=== PATIENT | female | born 1945 | race Caucasian/White ===

== ENCOUNTER 2024-02-25 13:05 | Observation (INO) | payer MEDICARE ==
[2024-02-25 15:20] LABS: BASO % 0.6 % (0-2.0); EOS % 3.8 % (0-4.5); HEMATOCRIT 27.7 % (32.4-45.2); LYMPH % 34.4 % (8-40); MCH 30.8 pg (25.7-33.7); MCHC 32.5 g/dl (32.0-36.0); MEAN CELL VOLUME 94.8 fl (80-96); MEAN PLT VOLUME 6.7 fl (7.5-11.1); MONO % 12.2 % (3.8-10.2); PLATELET COUNT 439 10^3/uL (134-434); RBC 2.92 M/mm3 (3.60-5.2); RDW 15.1 % (11.6-15.6); WHITE BLOOD COUNT 6.1 K/mm3 (4.0-10.0)
[2024-02-25 15:35] LABS: POTASSIUM 3.4 mmol/L (3.5-5.1)
[2024-02-25 15:38] LABS: ALBUMIN 3.2 g/dl (3.4-5.0); BLOOD UREA NITROGEN 14.7 mg/dL (7-18); CALCIUM 8.9 mg/dL (8.5-10.1)
[2024-02-25 15:41] LABS: CREATININE 0.8 mg/dL (0.55-1.3)
[2024-02-25 15:43] LABS: BILIRUBIN,TOTAL 0.6 mg/dL (0.2-1); TOT PROT 6.9 g/dl (6.4-8.2)
[2024-02-25 15:46] LABS: N-TERMINAL BNP 1026.2 pg/ml (5-450)
[2024-02-25 16:02] LABS: INR 1.05 (0.83-1.09); PROTHROMBIN TIME (PATIENT) 12.1 SEC (9.7-13.0)
[2024-02-25 16:05] LABS: ACTIVATED PTT 29.8 SECONDS (25.2-36.5)
[2024-02-25 16:09] LABS: EPI CELLS 5 /uL (0-25.1); HYALINE CASTS 0 /uL (0-3.1); PH,URINE 6.5 (5.0-8.0); URINE APPEARANCE CLEAR; URINE BACTERIA >9,000 /uL (0-1359); URINE BILIRUBIN NEGATIVE (NEGATIVE); URINE COLOR YELLOW; URINE GLUCOSE (UA) NEGATIVE (NEGATIVE); URINE KETONE NEGATIVE (NEGATIVE); URINE LEUK ESTERASE 1+ (NEGATIVE); URINE NITRITE NEGATIVE (NEGATIVE); URINE PROTEIN NEGATIVE (NEGATIVE); URINE RBC 8 /uL (0-23.9); URINE UROBILINOGEN 0.2 mg/dL (0.2-1.0); URINE WBC 57 /uL (0-25.8)
[2024-02-25] MEDS ORDERED: cefTRIAXone SODIUM 1 GM VIAL ONE (17:11)
[2024-02-25] MEDS ORDERED: ACETAMINOPHEN INJECTION 100 ML ONE (17:11)
[2024-02-25] MEDS: ACETAMINOPHEN 1000 MG/100 ML BAG IVPB ONE (17:21)
[2024-02-25] MEDS: CEFTRIAXONE 1 GM in DEXTROSE 5%-WATER - 100 ML IVPB ONE (17:21)
[2024-02-25] MEDS ORDERED: oxyCODONE HCL 5 MG TABLET PO PRN (18:51)
[2024-02-25] MEDS ORDERED: POTASSIUM CHLORIDE ORAL LIQUID 20 MEQ/15 ML ONE (19:32)
[2024-02-25] MEDS: FUROSEMIDE 40 MG/4 ML INJECTABLE VIAL IVPUSH SCH (20:10)
[2024-02-25] MEDS: POTASSIUM CHLORIDE ORAL LIQUID 20 MEQ/15 ML PO ONE (20:10)
[2024-02-25 21:28] VITALS: BMI 30.9
[2024-02-25] MEDS: HEPARIN NA (PORCINE) 5,000 UNITS/ML 1ML VIAL SQ SCH (23:31)
[2024-02-25] MEDS: DOCUSATE SODIUM 100 MG CAPSULE (FP) PO SCH (23:32)
[2024-02-26] MEDS: oxyCODONE HCL 5 MG TABLET PO PRN (03:26)
[2024-02-26 08:23] LABS: BASO % 0.8 % (0-2.0); EOS % 4.8 % (0-4.5); HEMATOCRIT 25.3 % (32.4-45.2); HEMOGLOBIN 8.4 GM/dL (10.7-15.3); LYMPH % 33.4 % (8-40); MCH 30.8 pg (25.7-33.7); MCHC 33.3 g/dl (32.0-36.0); MEAN CELL VOLUME 92.3 fl (80-96); MEAN PLT VOLUME 7.1 fl (7.5-11.1); MONO % 11.3 % (3.8-10.2); NEUT % 49.7 % (42.8-82.8); PLATELET COUNT 461 10^3/uL (134-434); RBC 2.74 M/mm3 (3.60-5.2); RDW 14.9 % (11.6-15.6)
[2024-02-26 08:40] LABS: POTASSIUM 3.6 mmol/L (3.5-5.1)
[2024-02-26 08:43] LABS: CALCIUM 9.2 mg/dL (8.5-10.1)
[2024-02-26 08:44] LABS: BLOOD UREA NITROGEN 13.5 mg/dL (7-18)
[2024-02-26 08:47] LABS: CREATININE 0.9 mg/dL (0.55-1.3)
[2024-02-26] MEDS: LISINOPRIL 20 MG TABLET PO SCH (09:28)
[2024-02-26] MEDS: BACLOFEN 10 MG TABLET (FP) PO PRN (21:53)
[2024-02-27 08:20] LABS: POTASSIUM 3.5 mmol/L (3.5-5.1)
[2024-02-27 08:23] LABS: CALCIUM 9.4 mg/dL (8.5-10.1)
[2024-02-27 08:24] LABS: BLOOD UREA NITROGEN 12.5 mg/dL (7-18)
[2024-02-27 08:26] LABS: BASO % 0.9 % (0-2.0); EOS % 4.2 % (0-4.5); HEMATOCRIT 28.4 % (32.4-45.2); HEMOGLOBIN 9.2 GM/dL (10.7-15.3); LYMPH % 32.8 % (8-40); MCH 30.6 pg (25.7-33.7); MCHC 32.6 g/dl (32.0-36.0); MEAN CELL VOLUME 93.8 fl (80-96); MEAN PLT VOLUME 7.4 fl (7.5-11.1); MONO % 12.6 % (3.8-10.2); NEUT % 49.5 % (42.8-82.8); PLATELET COUNT 501 10^3/uL (134-434); RBC 3.02 M/mm3 (3.60-5.2); WHITE BLOOD COUNT 5.7 K/mm3 (4.0-10.0)
[2024-02-27 08:27] LABS: CREATININE 0.9 mg/dL (0.55-1.3)
[2024-02-27 15:33] VITALS: BP 137/51; PULSE 83; RESP 18; TEMP 98.6
== END 2024-02-27 16:41 | disposition home or self-care (01) ==
LOC: JER 13:05 → INTOOBSV 17:36 → JERBED 17:36 → J4W 22:13
PROVIDERS: ADMIT Internal Medicine; ATTEND Internal Medicine
PROC: 3E023GC Introduction of Other Therapeutic Substance into Muscle, Percutaneous Approach (ICD-10-PCS; principal; 2024-02-25)
PROC: 3E033NZ Introduction of Analgesics, Hypnotics, Sedatives into Peripheral Vein, Percutaneous Approach (ICD-10-PCS; 2024-02-25)
PROC: 3E03329 Introduction of Other Anti-infective into Peripheral Vein, Percutaneous Approach (ICD-10-PCS; 2024-02-25)
DX: I16.0 Hypertensive urgency (principal); I35.0 Nonrheumatic aortic (valve) stenosis; Z98.890 Other specified postprocedural states; M19.90 Unspecified osteoarthritis, unspecified site; S06.4X0A Epidural hemorrhage without loss of consciousness, initial encounter; X58.XXXA Exposure to other specified factors, initial encounter; E66.9 Obesity, unspecified
CPT/HCPCS: 0241U-QW; 36415; 70450-TC; 71045-TC-FY; 80048; 80053; 81003; 82607; 82728; 83540; 83550; 83880; 84484; 85025; 85045; 85610; 85730; 93005; 93010; 93306-TC; 93970-TC; 96365; 96372; 96375; 97116-GP; 97162-GP; 99285-25; G0378; J0131; J0475; J1644